=== PATIENT | female | born 1980 | race Caucasian/White ===

== ENCOUNTER 2017-06-19 14:56 | Emergency (ER) | payer OTHER ==
[~2017-06-19] VITALS: Ht 162.6 cm; Wt 69.0 kg
[~2017-06-19 14:56] MED LIST: DOXY100C PO; PRED-503 PO; TRAZ1TAB14 PO; WELLTAB39 PO
[2017-06-19 14:58] VITALS: BP 132/89; PULSE 107; RESP 17; TEMP 98.4; O2SAT 99
--- NOTE | 2017-06-19 16:37 | PD ---
HPI Chief Complaint: Skin Problem Time Seen by Provider: 16:32 Travel History International Travel<30 days: No Contact w/Intl Traveler<30days: No Traveled to known affect area: No History of Present Illness HPI 37-year-old Female presents to emergency department with a lesion on her left hand. States this lesion developed one week ago started going away and then increased in size after hitting the lesion on a table.. 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 States that she has had one of these before on her eye brow. Patient is an IV drug user however denies use within a month. Patient denies fever, chills , numbness, tingling of the extremity. PFSH Past Medical History Asthma: Yes Diminished Hearing: No Hepatitis: Yes (HEP C) Medical other: Yes (MRSA) ?: Not LMP: DEPO Past Surgical History Gynecologic Surgery: Yes (LEEP) Tonsillectomy: Yes Other Surgery: Yes ([facility] I&D) Social History Alcohol Use: No Tobacco Use: Yes (1 PPD) Substance Use: Yes (IV heroin cocaine) Allergies-Medications (Allergen,Severity, Reaction): Coded Allergies: Sulfa (Sulfonamide Antibiotics) (Unverified Allergy, Severe, HIVES, ) paroxetine (Unverified Allergy, Severe, SYNCOPE, 06/19/17) penicillin G (Unverified Allergy, Unknown, UNKNOWN REACTION, 06/19/17) Reported Meds & Prescriptions Reported Meds & Active Scripts Active Clindamycin (Clindamycin HCl) 300 Mg Cap 300 Mg PO TID 7 Days Reported Trazodone (Trazodone HCl) 150 Mg Tablet 250 Mg PO HS Wellbutrin Xl 24 HR (Bupropion HCl) 300 Mg Tab 300 Mg PO DAILY Review of Systems Except as stated in HPI: all other systems reviewed are Neg Physical Exam Narrative GENERAL: Well-developed well-nourished in no apparent distress SKIN: Focused skin assessment warm/dry. Left wrist- abscess to base of thumb, area of fluctuance with surrounding erythema approximately 1 cm. TTP surrounding the abscess. No lymphangitic Spread HEAD: Atraumatic. Normocephalic. EYES: Pupils equal and round. No scleral icterus. No injection or drainage. CARDIOVASCULAR: Regular rate and rhythm. No murmur appreciated. RESPIRATORY: No accessory muscle use. Clear to auscultation. Breath sounds equal bilaterally. MUSCULOSKELETAL: No obvious deformities. No clubbing. No cyanosis. No edema. NEUROLOGICAL: Awake and alert. No obvious cranial nerve deficits. Motor grossly within normal limits. Normal speech. PSYCHIATRIC: Appropriate mood and affect; insight and judgment normal. Data Data Last Documented VS Vital Signs Date Time Temp Pulse Resp B/P (MAP) Pulse Ox O2 Delivery O2 Flow Rate FiO2 06/19/17 17:39 06/19/17 14:58 98.4 107 17 99 Room Air Orders Orders Clindamycin Inj (Cleocin Inj) (06/19/17 16:45) Acetamin-Hydrocod 325-10 Mg (Lillian 10-32 (06/19/17 16:45) Ed Discharge Order (06/19/17 17:22) [facility] Medical Decision Making Medical Screen Exam Complete: Yes Emergency Medical Condition: Yes Differential Diagnosis Right hand abscess versus cellulitis versus abrasion Narrative Course 37-year-old Female presents to emergency department with a lesion on her left hand. States this lesion developed one week ago started going away and then increased in size after hitting the lesion on a table.. 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 States that she has had one of these before on her eye brow. Patient is an IV drug user however denies use within a month. Patient denies fever, chills , numbness, tingling of the extremity. Vital signs stable Physical exam consistent with abscess of the left wrist Incision and drainage performed Clindamycin 600 mg IM Clindamycin for home Advised on wound care. Patient to return for worsening persistent symptoms Diagnosis Primary Impression: Abscess Referrals: Primary Care Physician Additional Instructions: Follow-up with primary care physician within 2 days. Take all antibiotics as prescribed you may remove packing tomorrow. Avoid excessive activity for 3 days Scripts Clindamycin (Clindamycin) 300 Mg Cap 300 MG PO TID for Infection for 7 Days, CAP 0 Refills Prov: Christine Langston DO 06/19/17 Disposition: 01 DISCHARGE HOME Condition: Stable Jordyn Akins Jun 19, 2017 16:37
[2017-06-19] MEDS ORDERED: CLIN300C5 PO (16:44)
[2017-06-19] MEDS ORDERED: ACETAMINOPHEN/HYDROcodone 325 MG/10 MG TAB PO ONE (16:45)
[2017-06-19] MEDS ORDERED: CLINDAMYCIN PHOS 600 MG/4 ML VIAL IM ONE (16:45)
== END 2017-06-19 17:30 | disposition home or self-care (01) ==
LOC: NEPD 14:56
DX: L02.414 Cutaneous abscess of left upper limb (principal); F17.200 Nicotine dependence, unspecified, uncomplicated; Z87.09 Personal history of other diseases of the respiratory system; Z86.19 Personal history of other infectious and parasitic diseases; Z86.14 Personal history of Methicillin resistant Staphylococcus aureus infection
CPT/HCPCS: 10061; 96372

== ENCOUNTER 2017-09-29 19:55 | Emergency (ER) | payer SELFPAY ==
[~2017-09-29] VITALS: Ht 162.6 cm; Wt 65.0 kg
[~2017-09-29 19:55] MED LIST changes: +CLIN300C5 PO; -DOXY100C PO; -PRED-503 PO
[2017-09-29 20:08] VITALS: BP 132/89; PULSE 100; RESP 18; TEMP 98.4; O2SAT 99
--- NOTE | 2017-09-29 20:37 | PD ---
HPI Chief Complaint: Skin Problem Time Seen by Provider: 20:29 Travel History International Travel<30 days: No Contact w/Intl Traveler<30days: No Traveled to known affect area: No History of Present Illness HPI Patient is a 37-year-old female presenting to the emergency department for evaluation of an abscess to her right inner forearm just distal to the elbow. Patient states it started 3 days ago when she injected IV drugs and missed. She reports that it looked as if it was going away however she attempted to queta it herself yesterday which caused to get bigger. She reports that she was able to drain pus from it. Symptom onset was gradual, severity is mild to moderate. She denies any fever, chills, nausea or vomiting. She reports her pain is a 3 out of 10, and it sore. Patient reports that she is going to rehab on Wednesday. PFSH Past Medical History Asthma: Yes Diminished Hearing: No Hepatitis: Yes (HEP C) Tetanus Vaccination: Unknown Influenza Vaccination: Yes ?: Not LMP: unsure, was on Depo injections Past Surgical History Section: Yes Gynecologic Surgery: Yes (LEEP) Tonsillectomy: Yes Other Surgery: Yes ([facility] I&D) Social History Alcohol Use: No Tobacco Use: Yes (1 PPD) Substance Use: Yes (IV heroin, cocaine) Allergies-Medications (Allergen,Severity, Reaction): Coded Allergies: Sulfa (Sulfonamide Antibiotics) (Unverified Allergy, Severe, HIVES, ) paroxetine (Unverified Allergy, Severe, SYNCOPE, 09/29/17) penicillin G (Unverified Allergy, Unknown, UNKNOWN REACTION, 09/29/17) Reported Meds & Prescriptions Reported Meds & Active Scripts Active No Active Prescriptions or Reported Medications Review of Systems Except as stated in HPI: all other systems reviewed are Neg Skin: Positive Lumps, Positive Change in Pigmentation Physical Exam Narrative GENERAL: Well-developed, well-nourished, alert female. Presenting in no acute distress. SKIN: Warm and dry. 3 cm erythematous, mildly fluctuant area to right forearm just distal to the antecubital space. Warm to the touch. HEAD: Atraumatic. Normocephalic. EYES: Pupils equal and round. No scleral icterus. No injection or drainage. ENT: No nasal bleeding or discharge. Mucous membranes pink and moist. NECK: Trachea midline. No JVD. CARDIOVASCULAR: Regular rate and rhythm. RESPIRATORY: No accessory muscle use. Clear to auscultation. Breath sounds equal bilaterally. GASTROINTESTINAL: Abdomen soft, non-tender, nondistended. Hepatic and splenic margins not palpable. MUSCULOSKELETAL: Extremities without clubbing, cyanosis, or edema. No obvious deformities. NEUROLOGICAL: Awake and alert. No obvious cranial nerve deficits. Motor grossly within normal limits. Five out of 5 muscle strength in the arms and legs. Normal speech. PSYCHIATRIC: Appropriate mood and affect; insight and judgment normal. Data Data Last Documented VS Vital Signs Date Time Temp Pulse Resp B/P (MAP) Pulse Ox O2 Delivery O2 Flow Rate FiO2 09/29/17 20:08 98.4 100 18 132/89 (103) 99 Orders Orders Clindamycin (Cleocin) (09/29/17 21:15) [facility] Medical Decision Making Medical Screen Exam Complete: Yes Emergency Medical Condition: Yes Interpretation(s) Vital Signs Date Time Temp Pulse Resp B/P (MAP) Pulse Ox O2 Delivery O2 Flow Rate FiO2 09/29/17 20:08 98.4 100 18 132/89 (103) 99 Differential Diagnosis Cellulitis versus abscess versus other Narrative Course Patient is a well-appearing 37-year-old female admittedly using IV drugs presenting for evaluation of an abscess to her right forearm. His vital signs are stable, she is afebrile. She has pictures on her phone that show stages of the abscesses progression, it was appearing to heal on its own until she picked at it with tweezers. Attempted I&D, there was no drainage noted. Patient tolerated well, sterile dressing applied. Patient was given first dose of clindamycin now. Discussed Dalvance with her, she declined. Patient was advised to return to emergency department for any new or worsening symptoms, she was advised to complete full course of antibiotics as prescribed. She was also advised to avoid further manipulation of wound. She verbalized understanding. Patient stable for discharge. Procedures Procedure Narrative After the risks and benefits were discussed the following procedure was performed: INCISION AND DRAINAGE OF ABSCESS: The area was prepped and was sterilely draped. A subcutaneous wheal of 1 % Xylocaine with a total number 1 mL was used to anesthetize the area. The area was properly anesthetized. A number 11 scalpel was used to make a 0.5-cm incision across the area of the abscess. No purulent drainage noted. Sterile dressing applied. Diagnosis Primary Impression: Cellulitis Qualified Codes: L03.114 - Cellulitis of left upper limb Additional Impression: IVDU (intravenous drug user) Referrals: [facility] Primary Care Physician Patient Instructions: Cellulitis (ED), General Instructions Additional Instructions: Do not pick or tried to manipulate wound to avoid further infection. Complete full course of antibiotics as prescribed Return to emergency department immediately for any new or worsening symptoms You may clean the area with soap and water, do not use peroxide. Follow-up with your primary doctor. Med/Other Pt SpecificInfo: Prescription(s) given Scripts Clindamycin (Clindamycin) 300 Mg Cap 300 MG PO TID for Infection for 10 Days, CAP 0 Refills Prov: Rubia Lee 09/29/17 Disposition: 01 DISCHARGE HOME Condition: Stable Rubia Lee Sep 29, 2017 20:37
[2017-09-29] MEDS ORDERED: CLIN300C5 PO (21:07)
[2017-09-29] MEDS ORDERED: CLINDAMYCIN 150 MG CAP PO ONE (21:15)
== END 2017-09-29 21:52 | disposition home or self-care (01) ==
LOC: NEPD 19:55
DX: L03.114 Cellulitis of left upper limb (principal); J45.909 Unspecified asthma, uncomplicated; B19.20 Unspecified viral hepatitis C without hepatic coma; F11.90 Opioid use, unspecified, uncomplicated; Z72.0 Tobacco use
CPT/HCPCS: 10060